=== PATIENT | male | born 1960 | race African-American/Black ===

== ENCOUNTER 2016-09-13 20:43 | Emergency (ER) | payer OTHER ==
[2016-09-13 21:12] LABS: #Basophils 0.1 thou/uL (0.0-0.2); #Lymphocytes 1.4 thou/uL (1.20-3.40); %Basophils 0.8 % (0.0-1.0); %Eosinophils 0.1 % (0.0-10.0); %Lymphocytes 12.1 % (21.0-51.0); %Monocytes 8.4 % (0.0-10.0); %Neutrophils 78.6 % (42.0-75.0); Hemoglobin 13.6 g/dL (14.0-18.0); Mean Corpuscular HGB CONC 34.2 g/dL (32.0-36.0); Mean Corpuscular Hemoglobin 32.8 pg (27.0-31.0); Mean Corpuscular Volume 95.8 fl (80.0-94.0); Mean Platelet Volume 10.1 fL (7.4-10.4); Platelet Count 129 thou/uL (130-400); Red Blood Cell (RBC) Count 4.13 mill/uL (4.70-6.10); White Blood Cell (WBC) Count 11.4 thou/uL (4.8-10.8)
[2016-09-13 21:30] LABS: ALT (SGPT) 14 U/L (8-55); AST (SGOT) 21 U/L (5-34); Albumin 4.4 g/dL (3.5-5.0); Alcohol Less than 10 mg/dL (Less than 10); Alkaline Phosphatase 79 U/L (40-150); Anion Gap 16 mmol/L (10-20); BUN (Urea Nitrogen) 15 mg/dL (8.4-25.7); Bilirubin, Total 0.6 mg/dL (0.2-1.2); Calc. Creatinine Clearance 0 mL/min (70-130); Calcium 9.3 mg/dL (7.8-10.44); Carbon Dioxide 22 mmol/L (22-29); Chloride 108 mmol/L (98-107); Estimated GFR-MDRD Greater than 90; Globulin 2.9 g/dL (2.4-3.5); Glucose 118 mg/dL (70-105); Protein, Total 7.3 g/dL (6.0-8.3); Sodium 142 mmol/L (136-145)
[2016-09-13 21:31] LABS: CKMB 1.3 ng/mL (0-6.6); Troponin I Less than 0.010 ng/mL (< 0.028)
--- NOTE | 2016-09-13 21:58 | RAD ---
AP CHEST: History: Chest pain. Date: 09-13-16 Comparison: 04-15-15 FINDINGS: AP chest demonstrates the lungs to be well aerated. No evidence of active intrathoracic disease is s een. No evidence of effusions, pneumonia, or pneumothorax is seen. IMPRESSION: Unremarkable AP chest. POS: [facility]
== END 2016-09-13 22:05 | disposition short-term general hospital (02) ==
LOC: MADERS 20:43
DX: R07.81 Pleurodynia (principal); I51.7 Cardiomegaly; F20.9 Schizophrenia, unspecified; F31.9 Bipolar disorder, unspecified; F17.200 Nicotine dependence, unspecified, uncomplicated
CPT/HCPCS: 71010; 80053; 80307; 82553; 84484; 85025; 93005

== ENCOUNTER 2016-10-19 20:13 | Emergency (ER) | payer OTHER ==
[2016-10-19] MEDS ORDERED: Benzonatate 100 MG CAP ONE (20:40)
[2016-10-19] MEDS ORDERED: HYDROcodone/Acetaminophen 10/325 mg Tablet ONE (20:40)
[2016-10-19] MEDS ORDERED: Dexamethasone 4 MG TAB ONE (20:41)
[2016-10-19] MEDS ORDERED: Ketorolac Tromethamine 60 MG/2 ML VIAL ONE (20:41)
[2016-10-19] MEDS ORDERED: Cyclobenzaprine 10 MG TAB ONE (20:41)
== END 2016-10-19 21:05 | disposition home or self-care (01) ==
LOC: MADERS 20:13
DX: J20.9 Acute bronchitis, unspecified (principal); M54.12 Radiculopathy, cervical region; F20.9 Schizophrenia, unspecified; F17.210 Nicotine dependence, cigarettes, uncomplicated; F31.9 Bipolar disorder, unspecified
CPT/HCPCS: 96372; J1885; J8540

== ENCOUNTER 2016-12-19 19:10 | Emergency (ER) | payer OTHER ==
--- NOTE | 2016-12-19 19:52 | RAD ---
PORTABLE CHEST: History: Cough. Comparison: 09-13-16 FINDINGS: Heart size and mediastinum are within normal limits. Lungs are clear of infiltrates. No bony finding s. IMPRESSION: No active intrathoracic disease. POS: [facility]
== END 2016-12-19 19:44 | disposition left against medical advice (07) ==
LOC: MADERS 19:10
DX: J20.9 Acute bronchitis, unspecified (principal); F31.9 Bipolar disorder, unspecified; F17.210 Nicotine dependence, cigarettes, uncomplicated
CPT/HCPCS: 71010; 87081; 87430; 94760

== ENCOUNTER → 2017-02-08 | Emergency (ER) | payer MEDICAID, OTHER ==
[~2017-02-08] MED LIST: Dextrose 5 % And 0.9 % NaCl 1000 ml Bag ONE; Lidocaine 1% 20 ML MDV ONE; Morphine 4 MG/ML VIAL ONE; Nicotine 21 MG PATCH ONE; Ondansetron ODT 4 MG TAB ONE; Sodium Chloride 0.9% 1,000 ML BAG ONE
[2017-02-08 05:52] LABS: PTT 24.9 SEC (22.9-36.1); Prothrombin Time 13.4 SEC (12.0-14.7)
[2017-02-08 06:02] LABS: #Basophils 0.1 thou/uL (0.0-0.2); #Eosinphils 0.1 thou/uL (0.0-0.7); #Lymphocytes 1.2 thou/uL (1.20-3.40); #Monocytes 0.6 thou/uL (0.11-0.59); #Neutrophils 4.8 thou/uL (1.40-6.50); %Basophils 0.9 % (0.0-1.0); %Eosinophils 1.2 % (0.0-10.0); %Lymphocytes 18.1 % (21.0-51.0); %Monocytes 8.3 % (0.0-10.0); %Neutrophils 71.6 % (42.0-75.0); Hemoglobin 15.3 g/dL (14.0-18.0); Mean Corpuscular HGB CONC 33.2 g/dL (32.0-36.0); Mean Corpuscular Hemoglobin 32.5 pg (27.0-31.0); Mean Corpuscular Volume 98.1 fl (80.0-94.0); Mean Platelet Volume 9.2 fL (7.4-10.4); Platelet Count 147 thou/uL (130-400); RBC Distribution Width 12.5 % (11.5-14.5); White Blood Cell (WBC) Count 6.7 thou/uL (4.8-10.8)
[2017-02-08 06:06] LABS: ALT (SGPT) 22 U/L (8-55); AST (SGOT) 27 U/L (5-34); Albumin 4.4 g/dL (3.5-5.0); Alkaline Phosphatase 89 U/L (40-150); Anion Gap 16 mmol/L (10-20); BUN (Urea Nitrogen) 18 mg/dL (8.4-25.7); Bilirubin, Total 0.4 mg/dL (0.2-1.2); CK (CPK) 469 U/L (30-200); Calc. Creatinine Clearance 0 mL/min (70-130); Calcium 9.6 mg/dL (7.8-10.44); Carbon Dioxide 23 mmol/L (22-29); Chloride 105 mmol/L (98-107); Estimated GFR-MDRD Greater than 90; Globulin 3.2 g/dL (2.4-3.5); Glucose 109 mg/dL (70-105); Lipase 28 U/L (8-78); Potassium 4.1 mmol/L (3.5-5.1); Protein, Total 7.6 g/dL (6.0-8.3); Sodium 140 mmol/L (136-145)
[2017-02-08 06:07] LABS: Acetaminophen Less than 6.0 mcg/mL (10.0-30.0); Alcohol Less than 10 mg/dL (Less than 10); Salicylate Less than 8.0 mg/dL (15.0-30.0)
[2017-02-08 06:26] LABS: CKMB 3.4 ng/mL (0-6.6); Troponin I Less than 0.010 ng/mL (< 0.028)
--- NOTE | 2017-02-08 07:53 | RAD ---
AP VIEW OF THE CHEST: INDICATION: History of chest pain. COMPARISON: Prior exam dated 12/19/16. IMPRESSION: No acute cardiopulmonary abnormality. The examination is not appreciably changed from the comparison . POS: [facility]
[2017-02-08 08:11] LABS: Bilirubin Negative (Negative); Blood, Urine Trace (Negative); Clarity Clear (Clear); Glucose, Urine (Dipstick) 100 mg/dL (Negative); Leukocyte Negative (Negative); Nitrite Negative (Negative); Protein, Urine (Dipstick) Trace mg/dL (Neg-Trace); Specific Gravity, Urine 1.025 (1.005-1.030); Urobilinogen 0.2 mg/dL (0.2-1.0); pH, Urine 5.5 (5.0-9.0)
[2017-02-08 08:19] LABS: Bacteria/HPF Rare-Few HPF (None Seen); RBC/HPF 0-3 HPF (0-3); Squamous Epithelial 0-3 HPF (0-3); WBC/HPF 0-3 HPF (0-3)
[2017-02-08 08:21] LABS: Amphetamine Not Detected (NotDetected); Barbiturates Screen Not Detected (NotDetected); Benzodiazepine Screen Not Detected (NotDetected); Cocaine Metabolite Screen Detected (NotDetected); Medtox Control Line Valid? VALID (VALID); Methadone Not Detected (NotDetected); Methamphetamine Not Detected (NotDetected); Opiate Screen Not Detected (NotDetected); Oxycodone Screen Not Detected (NotDetected); Phencyclidine (PCP) Not Detected (NotDetected); THC/Cannabinoid Screen Not Detected (NotDetected); Tricyclic Screen Not Detected (NotDetected)
[2017-02-09 09:27] LABS: #Basophils 0.1 thou/uL (0.0-0.2); #Eosinphils 0.2 thou/uL (0.0-0.7); #Lymphocytes 1.5 thou/uL (1.20-3.40); #Monocytes 0.5 thou/uL (0.11-0.59); #Neutrophils 4.1 thou/uL (1.40-6.50); %Basophils 0.9 % (0.0-1.0); %Eosinophils 3.8 % (0.0-10.0); %Monocytes 7.2 % (0.0-10.0); %Neutrophils 64.1 % (42.0-75.0); Hemoglobin 13.9 g/dL (14.0-18.0); Mean Corpuscular HGB CONC 31.8 g/dL (32.0-36.0); Mean Corpuscular Hemoglobin 31.9 pg (27.0-31.0); Mean Corpuscular Volume 100.2 fl (80.0-94.0); Mean Platelet Volume 10.9 fL (7.4-10.4); Platelet Count 134 thou/uL (130-400); RBC Distribution Width 12.6 % (11.5-14.5); Red Blood Cell (RBC) Count 4.35 mill/uL (4.70-6.10); White Blood Cell (WBC) Count 6.4 thou/uL (4.8-10.8)
[2017-02-09 09:43] LABS: ALT (SGPT) 18 U/L (8-55); AST (SGOT) 20 U/L (5-34); Albumin 3.7 g/dL (3.5-5.0); Alkaline Phosphatase 85 U/L (40-150); Anion Gap 14 mmol/L (10-20); BUN (Urea Nitrogen) 11 mg/dL (8.4-25.7); Bilirubin, Total 0.5 mg/dL (0.2-1.2); CK (CPK) 241 U/L (30-200); Calc. Creatinine Clearance 0 mL/min (70-130); Calcium 8.9 mg/dL (7.8-10.44); Carbon Dioxide 26 mmol/L (22-29); Chloride 107 mmol/L (98-107); Estimated GFR-MDRD Greater than 90; Globulin 2.8 g/dL (2.4-3.5); Glucose 76 mg/dL (70-105); Potassium 4.6 mmol/L (3.5-5.1); Protein, Total 6.5 g/dL (6.0-8.3); Sodium 142 mmol/L (136-145)
== END ==
LOC: MADERS 05:02
DX: R45.851 Suicidal ideations (principal); F17.210 Nicotine dependence, cigarettes, uncomplicated; F31.9 Bipolar disorder, unspecified; F20.9 Schizophrenia, unspecified
CPT/HCPCS: 36415; 71010; 80053; 80306; 80307; 81003; 81015; 82550; 82553; 83690; 84443; 84484; 85025; 85610; 85730; 93005; 96360; 96361; J2001; J2270; J7042; J7050; Q0162

== ENCOUNTER 2017-04-12 09:38 | Outpatient (CLI) | payer MEDICAID ==
--- NOTE | 2017-04-12 11:01 | RAD ---
THREE VIEWS OF THE RIGHT SHOULDER: COMPARISON: None. HISTORY: Shoulder pain for a month. FINDINGS: Three views right shoulder show no evidence of acute fracture or dislocation. No degenerative change s are seen. No soft tissue swelling is seen. The visualized right thorax is unremarkable. IMPRESSION: Unremarkable exam. POS: [facility]
== END 2017-04-12 09:39 | disposition home or self-care (01) ==
LOC: MADRAD 09:38
PROVIDERS: ATTEND Family Medicine
DX: M25.511 Pain in right shoulder (principal); M13.111 Monoarthritis, not elsewhere classified, right shoulder

== ENCOUNTER 2017-05-03 11:22 | Emergency (ER) | payer OTHER | END 2017-05-03 12:35 | disposition home or self-care (01) | LOC: MADERS 11:22 | DX: S46.911A Strain of unspecified muscle, fascia and tendon at shoulder and upper arm level, right arm, initial encounter (principal); G62.9 Polyneuropathy, unspecified; F20.9 Schizophrenia, unspecified; F31.9 Bipolar disorder, unspecified; F17.210 Nicotine dependence, cigarettes, uncomplicated; I51.7 Cardiomegaly; X58.XXXA Exposure to other specified factors, initial encounter | CPT/HCPCS: 99283 ==

== ENCOUNTER 2017-08-19 06:16 | Emergency (ER) | payer OTHER ==
[2017-08-19] MEDS ORDERED: Ketorolac Tromethamine 60 MG/2 ML VIAL ONE (06:56)
--- NOTE | 2017-08-19 07:39 | RAD ---
RIGHT ANKLE 3 VIEWS: History Injury. COMPARISON: None. FINDINGS: There are extensive calcifications. No acute displaced fracture or malalignment A small ankle joint effusion. IMPRESSION: Soft tissue swelling with vascular calcifications. No acute abnormality. POS: [facility]
== END 2017-08-19 07:45 | disposition home or self-care (01) ==
LOC: MADERS 06:16
DX: S93.411A Sprain of calcaneofibular ligament of right ankle, initial encounter (principal); F17.210 Nicotine dependence, cigarettes, uncomplicated; X50.1XXA Overexertion from prolonged static or awkward postures, initial encounter
CPT/HCPCS: 96372; J1885

== ENCOUNTER 2017-08-30 02:12 | Emergency (ER) | payer OTHER ==
[2017-08-30 03:09] LABS: #Basophils 0.1 thou/uL (0.0-0.2); #Eosinphils 0.1 thou/uL (0.0-0.7); #Lymphocytes 2.1 thou/uL (1.20-3.40); #Monocytes 0.8 thou/uL (0.11-0.59); #Neutrophils 6.3 thou/uL (1.40-6.50); %Basophils 1.4 % (0.0-1.0); %Eosinophils 1.2 % (0.0-10.0); %Lymphocytes 21.7 % (21.0-51.0); %Monocytes 8.5 % (0.0-10.0); %Neutrophils 67.2 % (42.0-75.0); Hemoglobin 14.2 g/dL (14.0-18.0); Mean Corpuscular HGB CONC 33.4 g/dL (32.0-36.0); Mean Corpuscular Hemoglobin 31.1 pg (27.0-31.0); Mean Corpuscular Volume 93.3 fL (78.0-98.0); Mean Platelet Volume 9.4 fL (7.4-10.4); Platelet Count 165 thou/uL (130-400); RBC Distribution Width 11.4 % (11.5-14.5); Red Blood Cell (RBC) Count 4.57 mill/uL (4.70-6.10); White Blood Cell (WBC) Count 9.4 thou/uL (4.8-10.8)
[2017-08-30 03:13] LABS: ALT (SGPT) 19 U/L (8-55); AST (SGOT) 31 U/L (5-34); Acetaminophen Less than 6.0 mcg/mL (10.0-30.0); Albumin 4.4 g/dL (3.5-5.0); Alcohol Less than 10 mg/dL (Less than 10); Alkaline Phosphatase 69 U/L (40-150); Anion Gap 17 mmol/L (10-20); BUN (Urea Nitrogen) 22 mg/dL (8.4-25.7); Bilirubin, Total 0.6 mg/dL (0.2-1.2); Calc. Creatinine Clearance 0 mL/min (70-130); Calcium 9.4 mg/dL (7.8-10.44); Carbon Dioxide 23 mmol/L (22-29); Chloride 106 mmol/L (98-107); Estimated GFR-MDRD 82; Glucose 105 mg/dL (70-105); Lipase 18 U/L (8-78); Potassium 3.5 mmol/L (3.5-5.1); Protein, Total 7.4 g/dL (6.0-8.3); Salicylate Less than 8.0 mg/dL (15.0-30.0); Sodium 142 mmol/L (136-145)
[2017-08-30 03:31] LABS: Bilirubin Small (Negative); Blood, Urine Trace (Negative); Clarity Slightly Cloudy (Clear); Glucose, Urine (Dipstick) Negative (Negative); Leukocyte Negative (Negative); Nitrite Negative (Negative); Protein, Urine (Dipstick) Trace mg/dL (Neg-Trace); Urobilinogen 0.2 mg/dL (0.2-1.0)
[2017-08-30 03:33] LABS: Troponin I Less than 0.010 ng/mL (< 0.028)
[2017-08-30 03:41] LABS: CKMB 2.9 ng/mL (0-6.6)
[2017-08-30 03:42] LABS: Amphetamine Not Detected (NotDetected); Barbiturates Screen Not Detected (NotDetected); Benzodiazepine Screen Not Detected (NotDetected); Cocaine Metabolite Screen Detected (NotDetected); Medtox Control Line Valid? VALID (VALID); Methadone Not Detected (NotDetected); Methamphetamine Not Detected (NotDetected); Opiate Screen Not Detected (NotDetected); Oxycodone Screen Not Detected (NotDetected); Phencyclidine (PCP) Not Detected (NotDetected); THC/Cannabinoid Screen Not Detected (NotDetected); Tricyclic Screen Not Detected (NotDetected)
[2017-08-30 03:43] LABS: Bacteria/HPF Rare-Few HPF (None Seen); Specific Gravity, Urine 1.034 (1.002-1.036); Squamous Epithelial 21-50 HPF (0-3)
[2017-08-30 03:44] LABS: Crystals/HPF 1+ AMORPH URATES HPF (Negative)
--- NOTE | 2017-08-30 09:05 | RAD ---
PORTABLE AP CHEST XRAY: DATE: 09/09/17. HISTORY: Chest pain. COMPARISON: 02/08/17. FINDINGS: Cardiac silhouette and pulmonary vasculature are within normal limits. Lungs remain clear. There benavides s been no interval change from the prior exam. IMPRESSION: No acute cardiopulmonary process. POS: [facility]
== END 2017-08-30 08:50 | disposition psychiatric hospital, planned readmission (93) ==
LOC: MADERS 02:12
DX: T50.902A Poisoning by unspecified drugs, medicaments and biological substances, intentional self-harm, initial encounter (principal); R07.2 Precordial pain; F17.210 Nicotine dependence, cigarettes, uncomplicated; F20.9 Schizophrenia, unspecified; F31.9 Bipolar disorder, unspecified
CPT/HCPCS: 36415; 51701; 71045; 80053; 80306; 80307; 81003; 81015; 82553; 83605; 83690; 84484; 85025; 85379; 93005; 94760

== ENCOUNTER 2017-09-07 12:24 | Emergency (ER) | payer OTHER ==
[~2017-09-07 12:24] MED LIST changes: -Dextrose 5 % And 0.9 % NaCl 1000 ml Bag ONE; -Lidocaine 1% 20 ML MDV ONE; -Morphine 4 MG/ML VIAL ONE; -Nicotine 21 MG PATCH ONE; -Ondansetron ODT 4 MG TAB ONE
[2017-09-07] MEDS ORDERED: Ketorolac Tromethamine 30 MG/ML VIAL ONE (12:55)
[2017-09-07 13:16] LABS: #Basophils 0.1 thou/uL (0.0-0.2); #Eosinphils 0.1 thou/uL (0.0-0.7); #Lymphocytes 2.2 thou/uL (1.20-3.40); #Monocytes 1.1 thou/uL (0.11-0.59); #Neutrophils 9.2 thou/uL (1.40-6.50); %Basophils 0.8 % (0.0-1.0); %Eosinophils 0.8 % (0.0-10.0); %Lymphocytes 17.1 % (21.0-51.0); %Monocytes 8.6 % (0.0-10.0); %Neutrophils 72.6 % (42.0-75.0); Hemoglobin 17.5 g/dL (14.0-18.0); Mean Corpuscular HGB CONC 33.5 g/dL (32.0-36.0); Mean Corpuscular Hemoglobin 31.3 pg (27.0-31.0); Mean Corpuscular Volume 93.3 fL (78.0-98.0); Mean Platelet Volume 9.3 fL (7.4-10.4); Platelet Count 201 thou/uL (130-400); RBC Distribution Width 11.6 % (11.5-14.5); Red Blood Cell (RBC) Count 5.59 mill/uL (4.70-6.10); White Blood Cell (WBC) Count 12.7 thou/uL (4.8-10.8)
[2017-09-07 13:31] LABS: ALT (SGPT) 35 U/L (8-55); AST (SGOT) 37 U/L (5-34); Albumin 5.5 g/dL (3.5-5.0); Alkaline Phosphatase 85 U/L (40-150); Anion Gap 28 mmol/L (10-20); BUN (Urea Nitrogen) 53 mg/dL (8.4-25.7); Bilirubin, Total 0.4 mg/dL (0.2-1.2); CK (CPK) 945 U/L (30-200); Calc. Creatinine Clearance 0 mL/min (70-130); Calcium 10.9 mg/dL (7.8-10.44); Carbon Dioxide 24 mmol/L (22-29); Chloride 88 mmol/L (98-107); Estimated GFR-MDRD 21; Globulin 4.1 g/dL (2.4-3.5); Glucose 110 mg/dL (70-105); Protein, Total 9.6 g/dL (6.0-8.3); Sodium 135 mmol/L (136-145)
[2017-09-07 13:35] LABS: Troponin I 0.011 ng/mL (< 0.028)
== END 2017-09-07 14:17 | disposition short-term general hospital (02) ==
LOC: MADERS 12:24
DX: N28.9 Disorder of kidney and ureter, unspecified (principal); F14.10 Cocaine abuse, uncomplicated; M62.82 Rhabdomyolysis; F17.210 Nicotine dependence, cigarettes, uncomplicated
CPT/HCPCS: 80053; 82550; 82553; 84484; 85025; 96361; 96374; J1885; J7050

== ENCOUNTER 2017-10-15 23:33 | Emergency (ER) | payer OTHER ==
[2017-10-16] MEDS ORDERED: HYDROcodone/Acetaminophen 10/325 mg Tablet ONE (00:37)
--- NOTE | 2017-10-16 07:47 | RAD ---
2 VIEWS RIGHT CLAVICLE: Date: 10/15/17 HISTORY: 57-year-old with history of trauma, mid clavicular tenderness. FINDINGS: AP and oblique views right clavicle obtained. No evidence of right clavicular fractures, subluxations , or bony lesions seen. IMPRESSION: Normal 2 views right clavicle. POS: [facility]
--- NOTE | 2017-10-16 08:20 | RAD ---
3 VIEWS RIGHT SHOULDER: Date: 10/16/17 HISTORY: Right shoulder pain after trauma. FINDINGS: AP internally, externally, and scapular Y views right shoulder obtained. Three views right shoulder d emonstrate no evidence of right shoulder fractures, subluxations, or bony lesions. The scapular Y vie w is nondiagnostic due to extensive patient motion. IMPRESSION: Normal 3 views right shoulder. POS: [facility]
== END 2017-10-16 00:35 | disposition home or self-care (01) ==
LOC: MADERS 23:33
DX: S43.421A Sprain of right rotator cuff capsule, initial encounter (principal); F17.210 Nicotine dependence, cigarettes, uncomplicated; F20.9 Schizophrenia, unspecified; F31.9 Bipolar disorder, unspecified; Z79.899 Other long term (current) drug therapy; X58.XXXA Exposure to other specified factors, initial encounter

== ENCOUNTER 2017-12-08 11:04 | Emergency (ER) | payer OTHER ==
[~2017-12-08 11:04] MED LIST changes: -Sodium Chloride 0.9% 1,000 ML BAG ONE; +Sodium Chloride Irrig Solution 250 ML BOT ONE
[2017-12-08] MEDS ORDERED: Adacel (T-DAP) 0.5 ML VIAL ONE (12:29)
[2017-12-08] MEDS ORDERED: Triple Antibiotic Oint 1 GM Packet ONE (12:41)
== END 2017-12-08 13:15 | disposition home or self-care (01) ==
LOC: MADERS 11:04
DX: S61.213A Laceration without foreign body of left middle finger without damage to nail, initial encounter (principal); S61.215A Laceration without foreign body of left ring finger without damage to nail, initial encounter; S61.217A Laceration without foreign body of left little finger without damage to nail, initial encounter; S61.211A Laceration without foreign body of left index finger without damage to nail, initial encounter; Z23 Encounter for immunization; I51.7 Cardiomegaly; F20.9 Schizophrenia, unspecified; F17.210 Nicotine dependence, cigarettes, uncomplicated; F31.9 Bipolar disorder, unspecified; Z79.899 Other long term (current) drug therapy; W45.8XXA Other foreign body or object entering through skin, initial encounter
CPT/HCPCS: 12001; 90471; 90715

== ENCOUNTER 2017-12-12 02:41 | Emergency (ER) | payer OTHER ==
[2017-12-12 03:29] LABS: #Basophils 0.1 thou/uL (0.0-0.2); #Eosinphils 0.1 thou/uL (0.0-0.7); #Monocytes 0.6 thou/uL (0.11-0.59); #Neutrophils 4.6 thou/uL (1.40-6.50); %Basophils 1.6 % (0.0-1.0); %Eosinophils 1.9 % (0.0-10.0); %Lymphocytes 26.9 % (21.0-51.0); %Monocytes 7.6 % (0.0-10.0); Hemoglobin 13.1 g/dL (14.0-18.0); Mean Corpuscular HGB CONC 35.2 g/dL (32.0-36.0); Mean Corpuscular Hemoglobin 33.8 pg (27.0-31.0); Mean Platelet Volume 8.5 fL (7.4-10.4); Platelet Count 156 thou/uL (130-400); RBC Distribution Width 11.7 % (11.5-14.5); Red Blood Cell (RBC) Count 3.88 mill/uL (4.70-6.10); White Blood Cell (WBC) Count 7.4 thou/uL (4.8-10.8)
[2017-12-12 03:49] LABS: ALT (SGPT) 21 U/L (8-55); AST (SGOT) 29 U/L (5-34); Acetaminophen Less than 6.0 mcg/mL (10.0-30.0); Albumin 4.1 g/dL (3.5-5.0); Alcohol 75 mg/dL (Less than 10); Alkaline Phosphatase 73 U/L (40-150); Anion Gap 15 mmol/L (10-20); BUN (Urea Nitrogen) 12 mg/dL (8.4-25.7); Bilirubin, Total 0.3 mg/dL (0.2-1.2); Calc. Creatinine Clearance 0 mL/min (70-130); Calcium 8.8 mg/dL (7.8-10.44); Carbon Dioxide 20 mmol/L (22-29); Chloride 110 mmol/L (98-107); Estimated GFR-MDRD Greater than 90; Globulin 2.8 g/dL (2.4-3.5); Glucose 101 mg/dL (70-105); Potassium 3.5 mmol/L (3.5-5.1); Protein, Total 6.9 g/dL (6.0-8.3); Salicylate Less than 8.0 mg/dL (15.0-30.0); Sodium 141 mmol/L (136-145)
[2017-12-12 04:31] LABS: Bilirubin Negative (Negative); Blood, Urine Negative (Negative); Clarity Clear (Clear); Glucose, Urine (Dipstick) Negative (Negative); Leukocyte Negative (Negative); Nitrite Negative (Negative); Protein, Urine (Dipstick) Negative (Neg-Trace); Urobilinogen 0.2 mg/dL (0.2-1.0); pH, Urine 5.5 (5.0-9.0)
[2017-12-12 04:38] LABS: Amphetamine Not Detected (NotDetected); Barbiturates Screen Not Detected (NotDetected); Benzodiazepine Screen Not Detected (NotDetected); Cocaine Metabolite Screen Detected (NotDetected); Medtox Control Line Valid? VALID (VALID); Methadone Not Detected (NotDetected); Methamphetamine Not Detected (NotDetected); Opiate Screen Not Detected (NotDetected); Oxycodone Screen Not Detected (NotDetected); Phencyclidine (PCP) Not Detected (NotDetected); THC/Cannabinoid Screen Not Detected (NotDetected); Tricyclic Screen Not Detected (NotDetected)
== END 2017-12-12 09:44 ==
LOC: MADERS 02:41
DX: R45.851 Suicidal ideations (principal); F20.9 Schizophrenia, unspecified; F31.9 Bipolar disorder, unspecified; F17.210 Nicotine dependence, cigarettes, uncomplicated
CPT/HCPCS: 36415; 80053; 80306; 80307; 81003; 84443; 85025; 99285

== ENCOUNTER 2018-01-28 12:40 | Emergency (ER) | payer OTHER ==
[2018-01-28] MEDS ORDERED: Ketorolac Tromethamine 30 MG/ML VIAL ONE (13:20)
== END 2018-01-28 13:28 | disposition home or self-care (01) ==
LOC: MADERS 12:40
DX: B34.9 Viral infection, unspecified (principal); F17.210 Nicotine dependence, cigarettes, uncomplicated; F20.9 Schizophrenia, unspecified; F31.9 Bipolar disorder, unspecified; Z79.899 Other long term (current) drug therapy
CPT/HCPCS: 96372; J1885

== ENCOUNTER 2018-08-20 05:36 | Emergency (ER) | payer OTHER ==
[2018-08-20 06:18] LABS: #Basophils 0.1 thou/uL (0.0-0.2); #Lymphocytes 1.4 thou/uL (1.20-3.40); #Monocytes 0.5 thou/uL (0.11-0.59); #Neutrophils 6.3 thou/uL (1.40-6.50); %Basophils 0.8 % (0.0-1.0); %Eosinophils 0.4 % (0.0-10.0); %Lymphocytes 16.7 % (21.0-51.0); %Monocytes 6.4 % (0.0-10.0); %Neutrophils 75.8 % (42.0-75.0); Hemoglobin 12.4 g/dL (14.0-18.0); Mean Corpuscular Hemoglobin 31.8 pg (27.0-31.0); Mean Corpuscular Volume 96.3 fL (78.0-98.0); Mean Platelet Volume 8.8 fL (7.4-10.4); Platelet Count 123 thou/uL (130-400); RBC Distribution Width 12.5 % (11.5-14.5); Red Blood Cell (RBC) Count 3.89 mill/uL (4.70-6.10); White Blood Cell (WBC) Count 8.3 thou/uL (4.8-10.8)
[2018-08-20 06:30] LABS: Acetaminophen Less than 6.0 mcg/mL (10.0-30.0); Alcohol Less than 10 mg/dL (Less than 10); CK (CPK) 392 U/L (30-200); Salicylate Less than 8.0 mg/dL (15.0-30.0)
[2018-08-20 06:32] LABS: ALT (SGPT) 22 U/L (8-55); AST (SGOT) 28 U/L (5-34); Alkaline Phosphatase 76 U/L (40-150); Anion Gap 11 mmol/L (10-20); BUN (Urea Nitrogen) 13 mg/dL (8.4-25.7); Bilirubin, Total 0.4 mg/dL (0.2-1.2); Calc. Creatinine Clearance 0 mL/min (70-130); Calcium 8.5 mg/dL (7.8-10.44); Carbon Dioxide 26 mmol/L (22-29); Chloride 106 mmol/L (98-107); Estimated GFR-MDRD Greater than 90; Globulin 2.3 g/dL (2.4-3.5); Glucose 122 mg/dL (70-105); Potassium 3.4 mmol/L (3.5-5.1); Protein, Total 6.3 g/dL (6.0-8.3); Sodium 140 mmol/L (136-145)
[2018-08-20 08:10] LABS: Bilirubin Negative (Negative); Blood, Urine Negative (Negative); Clarity Clear (Clear); Glucose, Urine (Dipstick) Negative (Negative); Leukocyte Negative (Negative); Nitrite Negative (Negative); Protein, Urine (Dipstick) Negative (Neg-Trace); Specific Gravity, Urine 1.015 (1.005-1.030); Urobilinogen 0.2 mg/dL (0.2-1.0)
[2018-08-20 08:17] LABS: Phencyclidine (PCP) Not Detected (NotDetected); THC/Cannabinoid Screen Not Detected (NotDetected)
[2018-08-20 08:18] LABS: Amphetamine Not Detected (NotDetected); Barbiturates Screen Not Detected (NotDetected); Benzodiazepine Screen Not Detected (NotDetected); Cocaine Metabolite Screen Detected (NotDetected); Medtox Control Line Valid? VALID (VALID); Methadone Not Detected (NotDetected); Methamphetamine Not Detected (NotDetected); Opiate Screen Not Detected (NotDetected); Oxycodone Screen Not Detected (NotDetected); Tricyclic Screen Not Detected (NotDetected)
== END 2018-08-20 12:08 ==
LOC: MADERS 05:36
DX: R45.851 Suicidal ideations (principal); R44.0 Auditory hallucinations; F17.210 Nicotine dependence, cigarettes, uncomplicated
CPT/HCPCS: 36415; 80053; 80306; 80307; 81003; 82550; 84443; 85025; 99285

== ENCOUNTER 2018-12-12 18:49 | Emergency (ER) | payer OTHER ==
[2018-12-12] MEDS ORDERED: Ketorolac Tromethamine 30 MG/ML VIAL ONE (19:20)
[2018-12-12] MEDS ORDERED: Sodium Chloride 0.9% 1,000 ML ONE ×2 (19:20→20:12)
--- NOTE | 2018-12-12 19:44 | RAD ---
Exam: Chest one view HISTORY:Cough Comparison: 08/30/2017 FINDINGS: Lungs: Patchy left basilar density Cardiac silhouette: Normal size Pulmonary vessels: Normal Pleural Spaces: Clear Pneumothorax: None Osseous abnormalities: None of acuity. IMPRESSION: Patchy left basilar density could relate to atelectasis, or pneumonitis. Correlate clinic ally, and imaging follow-up 2 view chest may be obtained to confirm resolution upon completion of treatment regimen.
[2018-12-12 19:47] LABS: #Basophils 0.1 thou/uL (0.0-0.2); #Eosinphils 0.1 thou/uL (0.0-0.7); #Lymphocytes 0.7 thou/uL (1.20-3.40); #Monocytes 0.8 thou/uL (0.11-0.59); #Neutrophils 4.6 thou/uL (1.40-6.50); %Basophils 0.9 % (0.0-1.0); %Eosinophils 1.3 % (0.0-10.0); %Lymphocytes 11.5 % (21.0-51.0); %Monocytes 13.2 % (0.0-10.0); Hemoglobin 13.8 g/dL (14.0-18.0); Mean Corpuscular HGB CONC 32.8 g/dL (32.0-36.0); Mean Corpuscular Hemoglobin 31.3 pg (27.0-31.0); Mean Corpuscular Volume 95.4 fL (78.0-98.0); Mean Platelet Volume 9.2 fL (7.4-10.4); Platelet Count 130 thou/uL (130-400); RBC Distribution Width 11.8 % (11.5-14.5); White Blood Cell (WBC) Count 6.3 thou/uL (4.8-10.8)
[2018-12-12] MEDS ORDERED: Dicyclomine 10 MG CAP ONE (19:53)
[2018-12-12 20:05] LABS: ALT (SGPT) 16 U/L (8-55); AST (SGOT) 18 U/L (5-34); Acetaminophen Less than 6.0 mcg/mL (10.0-30.0); Albumin 3.9 g/dL (3.5-5.0); Alcohol Less than 10 mg/dL (Less than 10); Alkaline Phosphatase 79 U/L (40-110); Anion Gap 15 mmol/L (10-20); BUN (Urea Nitrogen) 11 mg/dL (8.4-25.7); Bilirubin, Total 0.4 mg/dL (0.2-1.2); CK (CPK) 169 U/L (30-200); Calc. Creatinine Clearance 0 mL/min (70-130); Carbon Dioxide 24 mmol/L (22-29); Chloride 104 mmol/L (98-107); Estimated GFR-MDRD 87; Globulin 2.7 g/dL (2.4-3.5); Glucose 96 mg/dL (70-105); Potassium 3.8 mmol/L (3.5-5.1); Protein, Total 6.6 g/dL (6.0-8.3); Salicylate Less than 8.0 mg/dL (15.0-30.0); Sodium 139 mmol/L (136-145)
[2018-12-12] MEDS ORDERED: Promethazine HCl 25 MG/ML VIAL ONE (20:18)
[2018-12-12] MEDS ORDERED: Sodium Chloride 0.9% 100 ML ONE (20:18)
[2018-12-12] MEDS ORDERED: Acetaminophen 500 MG TAB ONE (21:32)
[2018-12-12 21:38] LABS: Bilirubin Negative (Negative); Blood, Urine Negative (Negative); Clarity Clear (Clear); Glucose, Urine (Dipstick) Negative (Negative); Leukocyte Negative (Negative); Nitrite Negative (Negative); Protein, Urine (Dipstick) Negative (Neg-Trace); Urobilinogen 0.2 mg/dL (Less than 2)
[2018-12-12 21:50] LABS: Amphetamine Not Detected (NotDetected); Barbiturates Screen Not Detected (NotDetected); Benzodiazepine Screen Not Detected (NotDetected); Cocaine Metabolite Screen Not Detected (NotDetected); Medtox Control Line Valid? VALID (VALID); Methadone Not Detected (NotDetected); Methamphetamine Not Detected (NotDetected); Opiate Screen Not Detected (NotDetected); Oxycodone Screen Not Detected (NotDetected); Phencyclidine (PCP) Not Detected (NotDetected); THC/Cannabinoid Screen Not Detected (NotDetected); Tricyclic Screen Not Detected (NotDetected)
== END 2018-12-12 22:14 | disposition home or self-care (01) ==
LOC: MADERS 18:49
DX: B34.9 Viral infection, unspecified (principal); F31.9 Bipolar disorder, unspecified; F20.9 Schizophrenia, unspecified; F29 Unspecified psychosis not due to a substance or known physiological condition; F17.210 Nicotine dependence, cigarettes, uncomplicated; Z71.6 Tobacco abuse counseling; Z79.899 Other long term (current) drug therapy
CPT/HCPCS: 71045; 80053; 80306; 80307; 81003; 82274; 82550; 83605; 84484; 85025; 87804; 96361; 96374; 96375; 99406; J1885; J2550; J3490; J7050

== ENCOUNTER 2019-04-29 13:09 | Emergency (ER) | payer OTHER ==
[2019-04-29] MEDS ORDERED: Amoxicillin/Potassium Clav 875 MG TAB ONE (13:37)
[2019-04-29] MEDS ORDERED: Ketorolac Tromethamine 30 MG/ML VIAL ONE (13:37)
== END 2019-04-29 14:00 | disposition home or self-care (01) ==
LOC: MADERS 13:09
DX: K04.7 Periapical abscess without sinus (principal); F31.9 Bipolar disorder, unspecified; F20.9 Schizophrenia, unspecified; F17.210 Nicotine dependence, cigarettes, uncomplicated; Z79.899 Other long term (current) drug therapy
CPT/HCPCS: 96372; 99282; J1885

== ENCOUNTER 2019-09-02 02:31 | Emergency (ER) | payer OTHER ==
[2019-09-02 03:24] LABS: #Basophils 0.1 thou/uL (0.0-0.2); #Eosinphils 0.1 thou/uL (0.0-0.7); #Lymphocytes 1.7 thou/uL (1.20-3.40); #Monocytes 0.5 thou/uL (0.11-0.59); %Basophils 1.2 % (0.0-1.0); %Lymphocytes 22.9 % (21.0-51.0); %Monocytes 6.6 % (0.0-10.0); %Neutrophils 68.4 % (42.0-75.0); Hemoglobin 12.8 g/dL (14.0-18.0); Mean Corpuscular HGB CONC 31.9 g/dL (32.0-36.0); Mean Corpuscular Hemoglobin 31.7 pg (27.0-31.0); Mean Corpuscular Volume 99.2 fL (78.0-98.0); Mean Platelet Volume 8.1 fL (7.4-10.4); Platelet Count 160 thou/uL (130-400); RBC Distribution Width 11.5 % (11.5-14.5); Red Blood Cell (RBC) Count 4.04 mill/uL (4.70-6.10); White Blood Cell (WBC) Count 7.3 thou/uL (4.8-10.8)
[2019-09-02 03:34] LABS: ALT (SGPT) 33 U/L (8-55); AST (SGOT) 45 U/L (5-34); Acetaminophen Less than 6.0 mcg/mL (10.0-30.0); Alcohol 74 mg/dL (Less than 10); Alkaline Phosphatase 66 U/L (40-110); Anion Gap 16 mmol/L (10-20); BUN (Urea Nitrogen) 15 mg/dL (8.4-25.7); Bilirubin, Total 0.5 mg/dL (0.2-1.2); Calc. Creatinine Clearance 0 mL/min (70-130); Calcium 8.5 mg/dL (7.8-10.44); Carbon Dioxide 21 mmol/L (22-29); Chloride 106 mmol/L (98-107); Estimated GFR-MDRD 88; Glucose 93 mg/dL (70-105); Potassium 3.3 mmol/L (3.5-5.1); Salicylate Less than 8.0 mg/dL (15.0-30.0); Sodium 140 mmol/L (136-145)
[2019-09-02 03:34] LABS: Amphetamine Not Detected (NotDetected); Barbiturates Screen Not Detected (NotDetected); Benzodiazepine Screen Not Detected (NotDetected); Cocaine Metabolite Screen Detected (NotDetected); Medtox Control Line Valid? VALID (VALID); Methadone Not Detected (NotDetected); Methamphetamine Not Detected (NotDetected); Opiate Screen Not Detected (NotDetected); Oxycodone Screen Not Detected (NotDetected); Phencyclidine (PCP) Not Detected (NotDetected); THC/Cannabinoid Screen Not Detected (NotDetected); Tricyclic Screen Not Detected (NotDetected)
== END 2019-09-02 09:48 | disposition home or self-care (01) ==
LOC: MADERS 02:31
DX: R45.851 Suicidal ideations (principal); F14.10 Cocaine abuse, uncomplicated; F31.9 Bipolar disorder, unspecified; F20.9 Schizophrenia, unspecified; F17.210 Nicotine dependence, cigarettes, uncomplicated
CPT/HCPCS: 80053; 80306; 80307; 82550; 84443; 85025; 93005

== ENCOUNTER 2019-11-24 12:21 | Emergency (ER) | payer OTHER ==
[2019-11-24] MEDS ORDERED: Aspirin Chewable 81 MG TAB ONE (12:44)
[2019-11-24 12:51] LABS: #Basophils 0.2 thou/uL (0.0-0.2); #Eosinphils 0.2 thou/uL (0.0-0.7); #Monocytes 1.1 thou/uL (0.11-0.59); #Neutrophils 6.5 thou/uL (1.40-6.50); %Basophils 1.7 % (0.0-1.0); %Eosinophils 1.5 % (0.0-10.0); %Lymphocytes 27.2 % (21.0-51.0); %Monocytes 10.2 % (0.0-10.0); %Neutrophils 59.4 % (42.0-75.0); Hemoglobin 14.6 g/dL (14.0-18.0); Mean Corpuscular HGB CONC 32.7 g/dL (32.0-36.0); Mean Corpuscular Hemoglobin 31.3 pg (27.0-31.0); Mean Corpuscular Volume 95.8 fL (78.0-98.0); Mean Platelet Volume 9.9 fL (7.4-10.4); Platelet Count 183 thou/uL (130-400); RBC Distribution Width 11.7 % (11.5-14.5); Red Blood Cell (RBC) Count 4.67 mill/uL (4.70-6.10); White Blood Cell (WBC) Count 10.9 thou/uL (4.8-10.8)
--- NOTE | 2019-11-24 12:53 | RAD ---
EXAM: Single view of the chest HISTORY: Chest pain COMPARISON: 12/12/2018 FINDINGS: Single view of the chest shows a normal sized cardiomediastinal silhouette. There is no kathia dence of consolidation, mass, or pleural effusion. No acute osseous abnormality. IMPRESSION: No evidence of acute cardiopulmonary disease
[2019-11-24 12:54] LABS: Bilirubin Negative (Negative); Blood, Urine Negative (Negative); Clarity Clear (Clear); Glucose, Urine (Dipstick) Negative (Negative); Ketone, Urine Negative (Negative); Leukocyte Negative (Negative); Nitrite Negative (Negative); Protein, Urine (Dipstick) Negative (Neg-Trace); Urobilinogen 0.2 mg/dL (Less than 2)
[2019-11-24 12:59] LABS: Specific Gravity, Urine 1.022 (1.002-1.036)
[2019-11-24 13:02] LABS: CKMB 4.5 ng/mL (0-6.6)
[2019-11-24 13:02] LABS: Amphetamine Not Detected (NotDetected); Barbiturates Screen Not Detected (NotDetected); Benzodiazepine Screen Not Detected (NotDetected); Cocaine Metabolite Screen Detected (NotDetected); Medtox Control Line Valid? VALID (VALID); Methadone Not Detected (NotDetected); Methamphetamine Not Detected (NotDetected); Opiate Screen Not Detected (NotDetected); Oxycodone Screen Not Detected (NotDetected); Phencyclidine (PCP) Not Detected (NotDetected); THC/Cannabinoid Screen Not Detected (NotDetected); Tricyclic Screen Not Detected (NotDetected)
[2019-11-24 13:03] LABS: ALT (SGPT) 20 U/L (8-55); AST (SGOT) 34 U/L (5-34); Albumin 4.5 g/dL (3.5-5.0); Alkaline Phosphatase 74 U/L (40-110); Anion Gap 20 mmol/L (10-20); BUN (Urea Nitrogen) 20 mg/dL (8.4-25.7); Bilirubin, Total 0.5 mg/dL (0.2-1.2); Calc. Creatinine Clearance 0 mL/min (70-130); Carbon Dioxide 20 mmol/L (22-29); Chloride 102 mmol/L (98-107); Estimated GFR-MDRD 76; Globulin 3.2 g/dL (2.4-3.5); Glucose 159 mg/dL (70-105); Potassium 3.7 mmol/L (3.5-5.1); Protein, Total 7.7 g/dL (6.0-8.3); Sodium 138 mmol/L (136-145)
[2019-11-24] MEDS ORDERED: Sodium Chloride 0.9% 1,000 ML ONE (13:04)
== END 2019-11-24 15:48 | disposition home or self-care (01) ==
LOC: MADERS 12:21
DX: R07.2 Precordial pain (principal); F14.10 Cocaine abuse, uncomplicated; R00.2 Palpitations; I51.7 Cardiomegaly; F31.9 Bipolar disorder, unspecified; F20.9 Schizophrenia, unspecified; F17.210 Nicotine dependence, cigarettes, uncomplicated
CPT/HCPCS: 51701; 71045; 80053; 80306; 80307; 81003; 82550; 82553; 84484; 85025; 93005; 94760; 96360; 96361; J7050

== ENCOUNTER 2019-12-22 11:46 | Emergency (ER) | payer OTHER ==
[2019-12-22] MEDS ORDERED: Dexamethasone 4 MG TAB ONE (12:34)
[2019-12-22] MEDS ORDERED: Dexamethasone 4 mg/ml Vial ONE (12:34)
--- NOTE | 2019-12-22 12:45 | RAD ---
XR Chest Pa Lat STANDARD History: Cough Comparison: Radiograph November 24, 2019 Findings: Lungs are clear. No pneumothorax. No effusion. Cardiac silhouette and mediastinal contours are within normal limits. No acute osseous abnormality. Impression: No acute intrathoracic abnormality.
[2019-12-22] MEDS ORDERED: Acetaminophen 500 MG TAB ONE (12:57)
[2019-12-24 10:36] LABS: SARS-CoV-2 MS2 Positive; SARS-CoV-2 N Gene Negative; SARS-CoV-2 S Gene Negative; SARS-CoV-2 by NAA Not Detected (NotDetected); SARS-CoV-2 orf1ab Negative
== END 2019-12-22 13:00 | disposition home or self-care (01) ==
LOC: MADERS 11:46
DX: J06.9 Acute upper respiratory infection, unspecified (principal); Z20.828 Contact with and (suspected) exposure to other viral communicable diseases; F31.9 Bipolar disorder, unspecified; F17.210 Nicotine dependence, cigarettes, uncomplicated
CPT/HCPCS: 71046; 87635; J1100; J8540; U0003

== ENCOUNTER 2020-02-08 20:48 | Emergency (ER) | payer OTHER ==
[2020-02-08] MEDS ORDERED: methylPREDNISolone Sod Succ/PF 125 MG/2 ML VIAL ONE (21:32)
[2020-02-08] MEDS ORDERED: diphenhydrAMINE 50 MG/ML VIAL ONE (21:32)
[2020-02-08 21:38] LABS: #Basophils 0.1 thou/uL (0.0-0.2); #Eosinphils 0.3 thou/uL (0.0-0.7); #Lymphocytes 2.3 thou/uL (1.20-3.40); #Monocytes 0.6 thou/uL (0.11-0.59); #Neutrophils 4.9 thou/uL (1.40-6.50); %Basophils 1.4 % (0.0-1.0); %Eosinophils 4.1 % (0.0-10.0); %Lymphocytes 27.6 % (21.0-51.0); %Monocytes 7.3 % (0.0-10.0); %Neutrophils 59.6 % (42.0-75.0); Hemoglobin 14.4 g/dL (14.0-18.0); Mean Corpuscular HGB CONC 33.5 g/dL (32.0-36.0); Mean Corpuscular Hemoglobin 32.7 pg (27.0-31.0); Mean Corpuscular Volume 97.5 fL (78.0-98.0); Mean Platelet Volume 9.6 fL (7.4-10.4); Platelet Count 132 thou/uL (130-400); RBC Distribution Width 11.5 % (11.5-14.5); White Blood Cell (WBC) Count 8.2 thou/uL (4.8-10.8)
--- NOTE | 2020-02-08 21:49 | RAD ---
Chest one view HISTORY: Chest pain. COMPARISON: 11/24/2019. FINDINGS: Cardiac silhouette is magnified by projection. Pulmonary vasculature is unremarkable. Mediastinum is midline. No lobar consolidation or evidence of pneumothorax. IMPRESSION : No abnormalities are demonstrated.
[2020-02-08 21:53] LABS: ALT (SGPT) 20 U/L (8-55); AST (SGOT) 24 U/L (5-34); Albumin 4.1 g/dL (3.5-5.0); Alkaline Phosphatase 81 U/L (40-110); Anion Gap 17 mmol/L (10-20); BUN (Urea Nitrogen) 20 mg/dL (8.4-25.7); Bilirubin, Total 0.4 mg/dL (0.2-1.2); CK (CPK) 417 U/L (30-200); CKMB 1.9 ng/mL (0-6.6); Calc. Creatinine Clearance 0 mL/min (70-130); Calcium 8.8 mg/dL (7.8-10.44); Carbon Dioxide 22 mmol/L (22-29); Chloride 105 mmol/L (98-107); Globulin 2.7 g/dL (2.4-3.5); Glucose 112 mg/dL (70-105); Potassium 3.6 mmol/L (3.5-5.1); Protein, Total 6.8 g/dL (6.0-8.3); Sodium 140 mmol/L (136-145)
[2020-02-08] MEDS ORDERED: Sodium Chloride 0.9% 1,000 ML ONE (22:19)
== END 2020-02-08 23:00 | disposition home or self-care (01) ==
LOC: MADERS 20:48
DX: T63.441A Toxic effect of venom of bees, accidental (unintentional), initial encounter (principal); E86.0 Dehydration; R07.9 Chest pain, unspecified; F17.210 Nicotine dependence, cigarettes, uncomplicated; Z71.6 Tobacco abuse counseling; Z79.899 Other long term (current) drug therapy
CPT/HCPCS: 71045; 80053; 82550; 82553; 84484; 85025; 93005; 96374; 96375; 99406; J1200; J2930; J7050

== ENCOUNTER 2020-05-05 10:39 | Emergency (ER) | payer OTHER ==
[2020-05-06 06:44] LABS: SARS-CoV-2 PCR by NAA DETECTED (NotDetected)
== END 2020-05-05 11:25 | disposition home or self-care (01) ==
LOC: MADERS 10:39
DX: U07.1 COVID-19 (principal); F17.210 Nicotine dependence, cigarettes, uncomplicated
CPT/HCPCS: 87635; 99284; U0003; U0005

== ENCOUNTER 2020-07-17 07:50 | Emergency (ER) | payer OTHER ==
[2020-07-17] MEDS ORDERED: Ibuprofen 400 MG TAB ONE (08:33)
== END 2020-07-17 08:49 | disposition home or self-care (01) ==
LOC: MADERS 07:50
DX: S43.101A Unspecified dislocation of right acromioclavicular joint, initial encounter (principal); F17.210 Nicotine dependence, cigarettes, uncomplicated; W19.XXXA Unspecified fall, initial encounter

== ENCOUNTER 2020-10-01 11:30 | Emergency (ER) | payer OTHER | END 2020-10-01 12:10 | disposition home or self-care (01) | LOC: MADERS 11:30 | DX: M25.512 Pain in left shoulder (principal); I42.9 Cardiomyopathy, unspecified; F17.210 Nicotine dependence, cigarettes, uncomplicated; Z79.899 Other long term (current) drug therapy | CPT/HCPCS: 99281 ==

== ENCOUNTER 2022-03-15 17:55 | Emergency (ER) | payer OTHER ==
[~2022-03-15 17:55] MED LIST changes: +Iopamidol 370 76% 100 ML VIAL ONE; -Sodium Chloride Irrig Solution 250 ML BOT ONE
[2022-03-15] MEDS ORDERED: Sodium Chloride 0.9% 1,000 ML ONE (18:43)
[2022-03-15] MEDS ORDERED: Ondansetron PF 4 MG/2 ML Vial ONE (18:44)
[2022-03-15] MEDS ORDERED: Ketorolac Tromethamine 30 MG/ML VIAL ONE (18:44)
[2022-03-15 18:47] LABS: #Basophils 0.1 thou/uL (0.0-0.2); #Eosinphils 0.3 thou/uL (0.0-0.7); #Lymphocytes 2.1 thou/uL (1.20-3.40); #Monocytes 0.5 thou/uL (0.11-0.59); %Basophils 1.2 % (0.0-1.0); %Eosinophils 3.9 % (0.0-10.0); %Lymphocytes 29.9 % (21.0-51.0); %Monocytes 7.5 % (0.0-10.0); %Neutrophils 57.5 % (42.0-75.0); Hemoglobin 15.1 g/dL (14.0-18.0); Mean Corpuscular HGB CONC 33.1 g/dL (32.0-36.0); Mean Corpuscular Hemoglobin 31.2 pg (27.0-31.0); Mean Corpuscular Volume 94.2 fl (78.0-98.0); Mean Platelet Volume 10.9 fL (7.4-10.4); Platelet Count 140 10x3/uL (130-400); RBC Distribution Width 12.2 % (11.5-14.5); Red Blood Cell (RBC) Count 4.85 mill/uL (4.70-6.10); White Blood Cell (WBC) Count 6.9 10x3/uL (4.8-10.8)
[2022-03-15 18:50] LABS: Prothrombin Time 13.7 sec (12.0-14.7)
[2022-03-15 18:51] LABS: PTT 26.8 sec (22.9-36.1)
[2022-03-15 19:02] LABS: ALT (SGPT) 37 U/L (8-55); AST (SGOT) 30 U/L (5-34); Alkaline Phosphatase 112 U/L (40-110); Anion Gap 16 mmol/L (10-20); BUN (Urea Nitrogen) 18 mg/dL (8.4-25.7); Bilirubin, Total 0.3 mg/dL (0.2-1.2); CRP (Inflammatory) Less than 0.50 mg/dL (= or < 0.5); Calc. Creatinine Clearance 0 mL/min (70-130); Calcium 9.4 mg/dL (7.8-10.44); Carbon Dioxide 20 mmol/L (22-29); Chloride 109 mmol/L (98-107); Estimated GFR 75; Globulin 3.1 g/dL (2.4-3.5); Glucose 105 mg/dL (70-105); Lipase 71 U/L (8-78); Protein, Total 7.1 g/dL (6.0-8.3); Sodium 141 mmol/L (136-145)
[2022-03-15 19:38] LABS: Bilirubin Negative (Negative); Blood, Urine Negative (Negative); Clarity Clear (Clear); Glucose, Urine (Dipstick) Negative (Negative); Ketone, Urine Negative (Negative); Leukocyte Negative (Negative); Nitrite Negative (Negative); Protein, Urine (Dipstick) Negative (Neg-Trace); Specific Gravity, Urine 1.021 (1.002-1.036); Urobilinogen 0.2 mg/dL (Less than 2)
[2022-03-15 19:46] LABS: Amphetamine Not Detected (NotDetected); Barbiturates Screen Not Detected (NotDetected); Benzodiazepine Screen Not Detected (NotDetected); Cocaine Metabolite Screen Detected (NotDetected); Medtox Control Line Valid? VALID (VALID); Methadone Not Detected (NotDetected); Methamphetamine Not Detected (NotDetected); Opiate Screen Not Detected (NotDetected); Oxycodone Screen Not Detected (NotDetected); Phencyclidine (PCP) Not Detected (NotDetected); THC/Cannabinoid Screen Not Detected (NotDetected); Tricyclic Screen Not Detected (NotDetected)
== END 2022-03-15 20:57 | disposition home or self-care (01) ==
LOC: MADERS 17:55
DX: R10.813 Right lower quadrant abdominal tenderness (principal); N32.89 Other specified disorders of bladder; F14.10 Cocaine abuse, uncomplicated; F17.210 Nicotine dependence, cigarettes, uncomplicated
CPT/HCPCS: 74177; 80053; 80306; 81003; 83605; 83690; 84484; 85025; 85610; 85730; 86140; 96374; 96375; J1885; J2405; J7050; Q9967

== ENCOUNTER 2023-01-23 09:20 | Emergency (ER) | payer OTHER ==
[2023-01-23 09:56] LABS: Bilirubin Negative (Negative); Blood, Urine Negative (Negative); Clarity Clear (Clear); Glucose, Urine (Dipstick) Negative (Negative); Ketone, Urine Negative (Negative); Leukocyte Negative (Negative); Nitrite Negative (Negative); Protein, Urine (Dipstick) Negative (Neg-Trace); Urobilinogen 0.2 mg/dL (Less than 2); pH, Urine 5.5 (5.0-9.0)
[2023-01-23 10:01] LABS: Bacteria/HPF Rare-Few HPF (None Seen); CAUTI Indications for Culture Pelvic or flank pain; RBC/HPF 0-3 HPF (0-3); Squamous Epithelial 0-3 HPF (0-3); Urine Culture Reflex No No; WBC/HPF 0-3 HPF (0-3)
[2023-01-23 10:14] LABS: Cocaine Metabolite Screen Detected (NotDetected); Methamphetamine Not Detected (NotDetected); Opiate Screen Not Detected (NotDetected); Phencyclidine (PCP) Not Detected (NotDetected); THC/Cannabinoid Screen Not Detected (NotDetected)
[2023-01-23 10:15] LABS: Amphetamine Not Detected (NotDetected); Barbiturates Screen Not Detected (NotDetected); Benzodiazepine Screen Not Detected (NotDetected); Methadone Not Detected (NotDetected); Oxycodone Screen Not Detected (NotDetected); Tricyclic Screen Not Detected (NotDetected)
[2023-01-23 10:17] LABS: #Basophils 0.1 thou/uL (0.0-0.2); #Eosinphils 0.2 thou/uL (0.0-0.7); #Lymphocytes 1.5 thou/uL (1.20-3.40); #Monocytes 0.8 thou/uL (0.11-0.59); #Neutrophils 3.9 thou/uL (1.40-6.50); %Basophils 1.2 % (0.0-1.0); %Eosinophils 3.2 % (0.0-10.0); %Lymphocytes 22.8 % (21.0-51.0); %Monocytes 11.7 % (0.0-10.0); %Neutrophils 61.1 % (42.0-75.0); Hematocrit 48.4 % (42.0-52.0); Hemoglobin 15.4 g/dL (14.0-18.0); Mean Corpuscular HGB CONC 31.9 g/dL (32.0-36.0); Mean Corpuscular Hemoglobin 31.9 pg (27.0-31.0); Mean Corpuscular Volume 99.9 fl (78.0-98.0); Mean Platelet Volume 10.4 fL (7.4-10.4); Platelet Count 135 10x3/uL (130-400); Red Blood Cell (RBC) Count 4.84 mill/uL (4.70-6.10); White Blood Cell (WBC) Count 6.4 10x3/uL (4.8-10.8)
[2023-01-23 10:35] LABS: ALT (SGPT) 26 U/L (8-55); AST (SGOT) 35 U/L (5-34); Acetaminophen Less than 10 mcg/mL (10.0-30.0); Albumin 4.6 g/dL (3.5-5.0); Alcohol Less than 10.0 mg/dL (Less than 10); Alkaline Phosphatase 86 U/L (40-110); Anion Gap 16 mmol/L (10-20); BUN (Urea Nitrogen) 10 mg/dL (8.4-25.7); Bilirubin, Total 0.9 mg/dL (0.2-1.2); Calc. Creatinine Clearance 0 mL/min (70-130); Calcium 9.9 mg/dL (7.8-10.44); Carbon Dioxide 25 mmol/L (22-29); Chloride 102 mmol/L (98-107); Estimated GFR 100; Globulin 3.2 g/dL (2.4-3.5); Glucose 98 mg/dL (70-105); Protein, Total 7.8 g/dL (6.0-8.3); Salicylate Less than 8.0 mg/dL (15.0-30.0); Sodium 139 mmol/L (136-145)
== END 2023-01-23 15:14 ==
LOC: MADERS 09:20
DX: R45.851 Suicidal ideations (principal); F20.9 Schizophrenia, unspecified; F31.9 Bipolar disorder, unspecified
CPT/HCPCS: 36415; 80053; 80306; 80307; 81001; 84443; 85025; 93005

== ENCOUNTER 2023-05-17 11:33 | Emergency (ER) | payer OTHER ==
[2023-05-17 11:59] LABS: #Basophils 0.1 thou/uL (0.0-0.2); #Eosinphils 0.5 thou/uL (0.0-0.7); #Lymphocytes 1.5 thou/uL (1.20-3.40); #Monocytes 0.6 thou/uL (0.11-0.59); #Neutrophils 5.3 thou/uL (1.40-6.50); %Eosinophils 6.1 % (0.0-10.0); %Lymphocytes 18.8 % (21.0-51.0); %Monocytes 7.7 % (0.0-10.0); %Neutrophils 66.4 % (42.0-75.0); Hematocrit 45.2 % (42.0-52.0); Hemoglobin 14.9 g/dL (14.0-18.0); Mean Corpuscular HGB CONC 32.9 g/dL (32.0-36.0); Mean Corpuscular Hemoglobin 31.6 pg (27.0-31.0); Mean Corpuscular Volume 96.2 fl (78.0-98.0); Mean Platelet Volume 9.6 fL (7.4-10.4); Platelet Count 168 10x3/uL (130-400); RBC Distribution Width 11.6 % (11.5-14.5)
[2023-05-17 12:08] LABS: INR-International Normal Ratio 1.1; Prothrombin Time 14.5 sec (12.0-14.7)
[2023-05-17 12:09] LABS: PTT 28.8 sec (22.9-36.1)
[2023-05-17 12:19] LABS: ALT (SGPT) 24 U/L (8-55); AST (SGOT) 27 U/L (5-34); Albumin 4.2 g/dL (3.5-5.0); Alcohol Less than 10.0 mg/dL (Less than 10); Alkaline Phosphatase 67 U/L (40-110); Anion Gap 13 mmol/L (10-20); BUN (Urea Nitrogen) 14 mg/dL (8.4-25.7); CK (CPK) 530 U/L (30-200); Calc. Creatinine Clearance 0 mL/min (70-130); Calcium 9.6 mg/dL (7.8-10.44); Carbon Dioxide 26 mmol/L (22-29); Chloride 104 mmol/L (98-107); Estimated GFR 82; Globulin 3.1 g/dL (2.4-3.5); Glucose 129 mg/dL (70-105); Potassium 3.9 mmol/L (3.5-5.1); Protein, Total 7.3 g/dL (6.0-8.3); Sodium 139 mmol/L (136-145)
[2023-05-17 12:20] LABS: Troponin I Less than 0.010 ng/mL (< 0.028)
[2023-05-17 12:21] LABS: Acetaminophen Less than 10 mcg/mL (10.0-30.0); Alcohol Less than 10.0 mg/dL (Less than 10); Lipase 41 U/L (8-78); Magnesium 1.9 mg/dL (1.6-2.6); Salicylate Less than 8.0 mg/dL (15.0-30.0)
[2023-05-17 13:57] LABS: Bilirubin Negative (Negative); Blood, Urine Negative (Negative); Clarity Clear (Clear); Glucose, Urine (Dipstick) Negative (Negative); Ketone, Urine Negative (Negative); Leukocyte Negative (Negative); Nitrite Negative (Negative); Protein, Urine (Dipstick) Negative (Neg-Trace); Specific Gravity, Urine 1.025 (1.005-1.030); Urobilinogen 0.2 mg/dL (Less than 2)
[2023-05-17 14:06] LABS: Cocaine Metabolite Screen Not Detected (NotDetected); Methamphetamine Not Detected (NotDetected); Opiate Screen Not Detected (NotDetected); Phencyclidine (PCP) Not Detected (NotDetected); THC/Cannabinoid Screen Not Detected (NotDetected)
[2023-05-17 14:07] LABS: Amphetamine Not Detected (NotDetected); Barbiturates Screen Not Detected (NotDetected); Benzodiazepine Screen Not Detected (NotDetected); Methadone Not Detected (NotDetected); Oxycodone Screen Not Detected (NotDetected); Tricyclic Screen Not Detected (NotDetected)
[2023-05-17 14:12] LABS: Bacteria/HPF None Seen HPF (None Seen); CAUTI Indications for Culture Alt mental st,lethar; Mucous/LPF Rare LPF (<2+); RBC/HPF 0-3 HPF (0-3); Squamous Epithelial 0-3 HPF (0-3); WBC/HPF 0-3 HPF (0-3)
[2023-05-17 14:13] LABS: Urine Culture Reflex No No
== END 2023-05-17 15:14 | disposition short-term general hospital (02) ==
LOC: MADERS 11:33
DX: R41.82 Altered mental status, unspecified (principal); F28 Other psychotic disorder not due to a substance or known physiological condition; F17.210 Nicotine dependence, cigarettes, uncomplicated
CPT/HCPCS: 70450; 74022; 80053; 80178; 80306; 80307; 81001; 82550; 83605; 83690; 83735; 84443; 84484; 85025; 85610; 85730; 93005; 96360

== ENCOUNTER 2023-06-28 06:40 | Emergency (ER) | payer OTHER ==
[2023-06-28 07:16] LABS: Bilirubin Negative (Negative); Blood, Urine Negative (Negative); Clarity Clear (Clear); Glucose, Urine (Dipstick) Negative (Negative); Ketone, Urine Negative (Negative); Leukocyte Negative (Negative); Nitrite Negative (Negative); Protein, Urine (Dipstick) Negative (Neg-Trace); Urobilinogen 0.2 mg/dL (Less than 2)
[2023-06-28 07:18] LABS: #Basophils 0.1 thou/uL (0.0-0.2); #Eosinphils 0.3 thou/uL (0.0-0.7); #Lymphocytes 2.4 thou/uL (1.20-3.40); #Monocytes 0.6 thou/uL (0.11-0.59); #Neutrophils 3.9 thou/uL (1.40-6.50); %Basophils 1.3 % (0.0-1.0); %Eosinophils 3.6 % (0.0-10.0); %Lymphocytes 33.1 % (21.0-51.0); Hematocrit 48.9 % (42.0-52.0); Hemoglobin 14.4 g/dL (14.0-18.0); Mean Corpuscular HGB CONC 29.4 g/dL (32.0-36.0); Mean Corpuscular Hemoglobin 29.4 pg (27.0-31.0); Mean Corpuscular Volume 100.1 fl (78.0-98.0); Mean Platelet Volume 10.1 fL (7.4-10.4); Platelet Count 133 10x3/uL (130-400); RBC Distribution Width 12.9 % (11.5-14.5); Red Blood Cell (RBC) Count 4.89 mill/uL (4.70-6.10); White Blood Cell (WBC) Count 7.3 10x3/uL (4.8-10.8)
[2023-06-28 07:24] LABS: Amphetamine Not Detected (NotDetected); Barbiturates Screen Not Detected (NotDetected); Benzodiazepine Screen Detected (NotDetected); Cocaine Metabolite Screen Detected (NotDetected); Methadone Not Detected (NotDetected); Methamphetamine Not Detected (NotDetected); Opiate Screen Not Detected (NotDetected); Oxycodone Screen Not Detected (NotDetected); Phencyclidine (PCP) Not Detected (NotDetected); RBC/HPF 0-3 HPF (0-3); Specific Gravity, Urine 1.018 (1.002-1.036); THC/Cannabinoid Screen Not Detected (NotDetected); Tricyclic Screen Not Detected (NotDetected)
[2023-06-28 07:28] LABS: Anion Gap 15 mmol/L (10-20); BUN (Urea Nitrogen) 17 mg/dL (8.4-25.7); Calc. Creatinine Clearance 0 mL/min (70-130); Carbon Dioxide 18 mmol/L (22-29); Chloride 109 mmol/L (98-107); Potassium 3.4 mmol/L (3.5-5.1); Sodium 139 mmol/L (136-145)
[2023-06-28 07:29] LABS: ALT (SGPT) 26 U/L (8-55); AST (SGOT) 19 U/L (5-34); Acetaminophen Less than 10 mcg/mL (10.0-30.0); Albumin 4.1 g/dL (3.5-5.0); Alcohol 24.4 mg/dL (Less than 10); Alcohol 24.8 mg/dL (Less than 10); Alkaline Phosphatase 82 U/L (40-110); Bilirubin, Total 0.5 mg/dL (0.2-1.2); CK (CPK) 169 U/L (30-200); Calcium 8.7 mg/dL (7.8-10.44); Estimated GFR 74; Globulin 2.8 g/dL (2.4-3.5); Glucose 163 mg/dL (70-105); Protein, Total 6.9 g/dL (6.0-8.3); Salicylate Less than 8.0 mg/dL (15.0-30.0)
[2023-06-28 07:34] LABS: Bacteria/HPF Rare-Few HPF (None Seen); CAUTI Indications for Culture Dysuria,urgency,freq; Squamous Epithelial 0-3 HPF (0-3); WBC/HPF 0-3 HPF (0-3)
[2023-06-28 07:35] LABS: Urine Culture Reflex No No
[2023-06-28] MEDS ORDERED: Potassium Chloride 20 MEQ TAB ONE (07:40)
== END 2023-06-28 18:17 ==
LOC: MADERS 06:40 → EEVIPCON 06:40 → MADERS 18:17
DX: R45.851 Suicidal ideations (principal); F14.10 Cocaine abuse, uncomplicated; F15.10 Other stimulant abuse, uncomplicated; F12.10 Cannabis abuse, uncomplicated; E87.6 Hypokalemia; F17.210 Nicotine dependence, cigarettes, uncomplicated
CPT/HCPCS: 80053; 80306; 80307; 81001; 82550; 84443; 85025; 99285

== ENCOUNTER 2023-12-29 06:35 | Emergency (ER) | payer OTHER ==
[2023-12-29 07:47] LABS: Amphetamine Not Detected (NotDetected); Barbiturates Screen Not Detected (NotDetected); Benzodiazepine Screen Not Detected (NotDetected); Cocaine Metabolite Screen Detected (NotDetected); Methadone Not Detected (NotDetected); Methamphetamine Not Detected (NotDetected); Opiate Screen Not Detected (NotDetected); Oxycodone Screen Not Detected (NotDetected); Phencyclidine (PCP) Not Detected (NotDetected); THC/Cannabinoid Screen Not Detected (NotDetected); Tricyclic Screen Not Detected (NotDetected)
[2023-12-29 07:51] LABS: Bilirubin Negative (Negative); Blood, Urine Negative (Negative); Clarity Clear (Clear); Glucose, Urine (Dipstick) Negative (Negative); Ketone, Urine Negative (Negative); Leukocyte Negative (Negative); Nitrite Negative (Negative); Protein, Urine (Dipstick) Negative (Neg-Trace); Urobilinogen 0.2 mg/dL (Less than 2)
[2023-12-29 07:52] LABS: Hematocrit 39.4 % (42.0-52.0); Hemoglobin 12.7 g/dL (14.0-18.0); Mean Corpuscular HGB CONC 32.2 g/dL (32.0-36.0); Mean Corpuscular Hemoglobin 31.1 pg (27.0-31.0); Mean Corpuscular Volume 96.7 fl (78.0-98.0); Mean Platelet Volume 11.2 fL (7.4-10.4); Platelet Count 142 10x3/uL (130-400); RBC Distribution Width 12.8 % (11.5-14.5); Red Blood Cell (RBC) Count 4.07 mill/uL (4.70-6.10); White Blood Cell (WBC) Count 5.9 10x3/uL (4.8-10.8)
[2023-12-29 08:01] LABS: ALT (SGPT) 25 U/L (8-55); AST (SGOT) 21 U/L (5-34); Albumin 3.3 g/dL (3.4-4.8); Alcohol Less than 10.0 mg/dL (Less than 10); Alkaline Phosphatase 74 U/L (40-110); Anion Gap 13 mmol/L (10-20); BUN (Urea Nitrogen) 14 mg/dL (8.4-25.7); Bilirubin, Total 0.3 mg/dL (0.2-1.2); Calc. Creatinine Clearance 0 mL/min (70-130); Calcium 8.5 mg/dL (7.8-10.44); Carbon Dioxide 19 mmol/L (23-31); Chloride 114 mmol/L (98-107); Estimated GFR 97; Globulin 2.7 g/dL (2.4-3.5); Glucose 103 mg/dL (80-115); Sodium 142 mmol/L (136-145)
[2023-12-29 08:02] LABS: Acetaminophen Less than 10 mcg/mL (Less than 10); Alcohol Less than 10.0 mg/dL (Less than 10); Salicylate Less than 8.0 mg/dL (Less than 8.0)
[2023-12-29 08:06] LABS: Manual Diff?? YES
[2023-12-29 08:07] LABS: Band 2 % (5-11); Eosinophils 4 % (0-10); Lymphocytes 36 % (21-51); MDiff Complete? YES; Monocytes 4 % (0-10); Neutrophil 54 % (42-75); Platelet Adequacy Comment Appears Adequate; RBC Morph Comment Within Normal Limits
[2023-12-29 08:12] LABS: Bacteria/HPF Rare-Few HPF (None Seen); CAUTI Indications for Culture Alt mental st,lethar; RBC/HPF 0-3 HPF (0-3); Squamous Epithelial 0-3 HPF (0-3); Urine Culture Reflex No No; WBC/HPF 0-3 HPF (0-3)
== END 2023-12-29 12:24 ==
LOC: MADERS 06:35
DX: R45.851 Suicidal ideations (principal); F17.210 Nicotine dependence, cigarettes, uncomplicated
CPT/HCPCS: 80053; 80306; 80307; 81001; 85025; 99285

== ENCOUNTER 2024-04-22 04:00 | Emergency (ER) | payer OTHER ==
[2024-04-22 04:27] LABS: #Basophils 0.1 thou/uL (0.0-0.2); #Eosinophils 0.1 thou/uL (0.0-0.7); #Lymphocytes 2.3 thou/uL (1.20-3.40); #Monocytes 0.8 thou/uL (0.11-0.59); #Neutrophils 6.7 thou/uL (1.40-6.50); %Basophils 0.7 % (0.0-1.0); %Eosinophils 1.3 % (0.0-10.0); %Lymphocytes 23.4 % (21.0-51.0); %Monocytes 7.5 % (0.0-10.0); %Neutrophils 67.1 % (42.0-75.0); Hematocrit 41.4 % (42.0-52.0); Hemoglobin 13.9 g/dL (14.0-18.0); Mean Corpuscular HGB CONC 33.5 g/dL (32.0-36.0); Mean Corpuscular Hemoglobin 31.2 pg (27.0-31.0); Mean Corpuscular Volume 93.3 fl (78.0-98.0); Mean Platelet Volume 10.9 fL (7.4-10.4); Platelet Count 139 10x3/uL (130-400); RBC Distribution Width 12.7 % (11.5-14.5); Red Blood Cell (RBC) Count 4.44 mill/uL (4.70-6.10); White Blood Cell (WBC) Count 9.9 10x3/uL (4.8-10.8)
[2024-04-22 04:47] LABS: ALT (SGPT) 36 U/L (Less than 45); AST (SGOT) 40 U/L (11-34); Albumin 4.1 g/dL (3.1-4.5); Alkaline Phosphatase 67 U/L (40-110); Anion Gap 18 mmol/L (10-20); BUN (Urea Nitrogen) 11 mg/dL (8.4-25.7); Bilirubin, Total 0.9 mg/dL (0.3-1.2); Calc. Creatinine Clearance 0 mL/min (70-130); Carbon Dioxide 16 mmol/L (23-31); Chloride 106 mmol/L (98-107); Estimated GFR 90; Globulin 3.3 g/dL (2.4-3.5); Glucose 115 mg/dL (80-115); Potassium 3.7 mmol/L (3.5-5.1); Protein, Total 7.4 g/dL (5.8-8.1); Sodium 136 mmol/L (136-145)
[2024-04-22 04:48] LABS: Acetaminophen Less than 10 mcg/mL (Less than 10); Alcohol Less than 10.0 mg/dL (Less than 10); Salicylate Less than 8.0 mg/dL (Less than 8.0)
[2024-04-22 05:25] LABS: Bilirubin Negative (Negative); Blood, Urine Negative (Negative); Clarity Clear (Clear); Glucose, Urine (Dipstick) Negative (Negative); Ketone, Urine Negative (Negative); Leukocyte Negative (Negative); Nitrite Negative (Negative); Protein, Urine (Dipstick) Negative (Neg-Trace); Urobilinogen 0.2 mg/dL (Less than 2)
[2024-04-22 05:30] LABS: CAUTI Indications for Culture Alt mental st,lethar; RBC/HPF None Seen HPF (0-3); Squamous Epithelial 0-3 HPF (0-3); Urine Culture Reflex No No; WBC/HPF None Seen HPF (0-3)
[2024-04-22 05:34] LABS: Amphetamine Not Detected (NotDetected); Barbiturates Screen Not Detected (NotDetected); Benzodiazepine Screen Not Detected (NotDetected); Cocaine Metabolite Screen Detected (NotDetected); Methadone Not Detected (NotDetected); Methamphetamine Not Detected (NotDetected); Opiate Screen Not Detected (NotDetected); Oxycodone Screen Not Detected (NotDetected); Phencyclidine (PCP) Not Detected (NotDetected); THC/Cannabinoid Screen Not Detected (NotDetected); Tricyclic Screen Not Detected (NotDetected)
== END 2024-04-22 09:36 ==
LOC: MADERS 04:00
DX: R45.851 Suicidal ideations (principal); F19.10 Other psychoactive substance abuse, uncomplicated
CPT/HCPCS: 80053; 80306; 80307; 81001; 85025; 93005; 99285

== ENCOUNTER 2024-10-08 05:47 | Emergency (ER) | payer MEDICAID, OTHER ==
[2024-10-08 06:27] LABS: #Basophils 0.1 thou/uL (0.0-0.2); #Eosinophils 0.2 thou/uL (0.0-0.7); #Lymphocytes 2.0 thou/uL (1.20-3.40); #Monocytes 0.8 thou/uL (0.11-0.59); #Neutrophils 6.2 thou/uL (1.40-6.50); %Basophils 1.1 % (0.0-1.0); %Eosinophils 2.2 % (0.0-10.0); %Lymphocytes 21.2 % (21.0-51.0); %Monocytes 8.8 % (0.0-10.0); %Neutrophils 66.8 % (42.0-75.0); Hematocrit 45.4 % (42.0-52.0); Hemoglobin 14.7 g/dL (14.0-18.0); Mean Corpuscular Hemoglobin 30.9 pg (27.0-31.0); Mean Corpuscular Volume 95.3 fl (78.0-98.0); Platelet Count 147 10x3/uL (130-400); Red Blood Cell (RBC) Count 4.77 mill/uL (4.70-6.10); White Blood Cell (WBC) Count 9.3 10x3/uL (4.8-10.8)
[2024-10-08 06:42] LABS: Acetaminophen Less than 10 mcg/mL (Less than 10); Salicylate Less than 8.0 mg/dL (Less than 8.0)
[2024-10-08 06:46] LABS: Troponin I Less than 0.010 ng/mL (< 0.028)
[2024-10-08 06:48] LABS: ALT (SGPT) 51 U/L (Less than 45); AST (SGOT) 45 U/L (11-34); Albumin 4.1 g/dL (3.1-4.5); Alkaline Phosphatase 63 U/L (40-110); Anion Gap 15 mmol/L (10-20); BUN (Urea Nitrogen) 13 mg/dL (8.4-25.7); Bilirubin, Total 0.9 mg/dL (0.3-1.2); Calc. Creatinine Clearance 0 mL/min (70-130); Calcium 9.2 mg/dL (7.8-10.44); Carbon Dioxide 22 mmol/L (23-31); Chloride 105 mmol/L (98-107); Globulin 3.2 g/dL (2.4-3.5); Glucose 120 mg/dL (80-115); Potassium 3.6 mmol/L (3.5-5.1); Sodium 138 mmol/L (136-145)
[2024-10-08 14:34] LABS: Glucose, Urine (Dipstick) Negative (Negative); Leukocyte Negative (Negative); Protein, Urine (Dipstick) 30 mg/dL (Neg-Trace); Specific Gravity, Urine Greater/Equal 1.030 (1.005-1.030)
[2024-10-08 14:41] LABS: Cocaine Metabolite Screen PRELIM POSITIVE (Negative); THC/Cannabinoid Screen Negative (Negative); Tricyclic Screen Negative (Negative)
[2024-10-08 14:44] LABS: Bacteria/HPF Rare-Few HPF (None Seen); CAUTI Indications for Culture Dysuria,urgency,freq; Mucous/LPF 1+ LPF (<2+); RBC/HPF None Seen HPF (0-3); WBC/HPF None Seen HPF (0-3)
[2024-10-08 14:45] LABS: Urine Culture Reflex No No
== END 2024-10-08 19:45 ==
LOC: MADERS 05:47
DX: R45.851 Suicidal ideations (principal); F17.210 Nicotine dependence, cigarettes, uncomplicated
CPT/HCPCS: 80053; 80306; 80307; 81001; 84484; 85025; 93005; 99285

== ENCOUNTER 2024-11-02 14:21 | Emergency (ER) | payer MEDICAID | END 2024-11-02 15:45 | disposition short-term general hospital (02) | LOC: MADERS 14:21 | DX: T18.128A Food in esophagus causing other injury, initial encounter (principal); R13.10 Dysphagia, unspecified; R29.700 NIHSS score 0; F17.210 Nicotine dependence, cigarettes, uncomplicated | CPT/HCPCS: 70360; 71046; Q0162 ==

== ENCOUNTER 2025-02-14 09:23 | Emergency (ER) | payer MEDICAID, OTHER ==
[2025-02-14 10:22] LABS: Bacteria/HPF Rare-Few HPF (None Seen); CAUTI Indications for Culture Dysuria,urgency,freq; Glucose, Urine (Dipstick) Negative (Negative); Leukocyte Negative (Negative); Protein, Urine (Dipstick) Negative (Neg-Trace); RBC/HPF 0-3 HPF (0-3); Specific Gravity, Urine 1.015 (1.005-1.030); WBC/HPF 0-3 HPF (0-3)
[2025-02-14 10:23] LABS: Urine Culture Reflex No No
[2025-02-14 10:24] LABS: ALT (SGPT) 36 U/L (Less than 45); AST (SGOT) 35 U/L (11-34); Albumin 4.6 g/dL (3.1-4.5); Alkaline Phosphatase 83 U/L (40-110); Anion Gap 19 mmol/L (10-20); BUN (Urea Nitrogen) 12 mg/dL (8.4-25.7); Bilirubin, Total 0.5 mg/dL (0.3-1.2); Calc. Creatinine Clearance 0 mL/min (70-130); Calcium 9.2 mg/dL (7.8-10.44); Carbon Dioxide 19 mmol/L (23-31); Chloride 105 mmol/L (98-107); Cocaine Metabolite Screen PRELIM POSITIVE (Negative); Globulin 3.5 g/dL (2.4-3.5); Glucose 97 mg/dL (80-115); Potassium 4.0 mmol/L (3.5-5.1); Sodium 139 mmol/L (136-145); THC/Cannabinoid Screen Negative (Negative); Tricyclic Screen Negative (Negative)
[2025-02-14 10:25] LABS: Acetaminophen Less than 10 mcg/mL (Less than 10); Salicylate Less than 8.0 mg/dL (Less than 8.0)
[2025-02-14 10:31] LABS: Hematocrit 48.2 % (42.0-52.0); Hemoglobin 15.5 g/dL (14.0-18.0); MDiff Complete? YES; Mean Corpuscular Hemoglobin 30.4 pg (27.0-31.0); Mean Corpuscular Volume 94.5 fl (78.0-98.0); Platelet Adequacy Comment Appears Adequate; Platelet Count 153 10x3/uL (130-400); Red Blood Cell (RBC) Count 5.10 mill/uL (4.70-6.10); White Blood Cell (WBC) Count 10.6 10x3/uL (4.8-10.8)
== END 2025-02-14 15:15 ==
LOC: MADERS 09:23
DX: R45.851 Suicidal ideations (principal); F17.210 Nicotine dependence, cigarettes, uncomplicated
CPT/HCPCS: 80053; 80306; 80307; 81001; 85025; 93005; 94760; 99285; J7030